=== PATIENT | female | born 1980 | race Hispanic/Latino ===

== ENCOUNTER 2020-06-27 10:40 | Inpatient (IN) | payer SELFPAY ==
--- NOTE | 2020-06-27 11:00 | Event Note ---
ED Screening Note ED Screening Note: hx of chronic venous PVD, lymphedema last night began having chills, right leg edema, and right leg erythema and increased warmth appears likely cellulitis, from below the knee to the ankle This initial assessment/diagnostic orders/clinical plan/treatment(s) is/are subject to change based on patients health status, clinical progression and re- assessment by fellow clinical providers in the ED. Further treatment and workup at subsequent clinical providers discretion. Patient/guardian urged not to elope from the ED as their condition may be serious if not clinically assessed and managed. Initial orders include: labs US
[2020-06-27 11:44] LABS: Hematocrit 39.4 % (30.3-42.9); Hemoglobin 13.1 gm/dl (10.1-14.3); Mean Corpuscular HGB Conc 33 % (30-34); Mean Corpuscular Volume 81 fl (79-97); Platelet Count 318 K/mm3 (140-440); Red Blood Count 4.84 M/mm3 (3.65-5.03); Red Cell Distribution Width 14.3 % (13.2-15.2)
[2020-06-27] MEDS ORDERED: LACTATED RINGERS 1000 ML IV SOLN IV ONE (11:52)
[2020-06-27] MEDS ORDERED: ONDANSETRON 4 MG/2 ML INJ IV ONE (11:53)
[2020-06-27] MEDS ORDERED: MORPHINE 4 MG/1 ML INJ IV ONE (11:53)
[2020-06-27] MEDS ORDERED: VANCOMYCIN 1,500 MG in SODIUM CHLORIDE 0.9% 500 ML 500 ML IV ONE (12:00)
[2020-06-27] MEDS ORDERED: VANCOMYCIN PHARMACY TO DOSE IV SCH (12:00)
[2020-06-27 12:02] LABS: Calcium 9.4 mg/dL (8.4-10.2)
--- NOTE | 2020-06-27 12:59 | Emergency Department Report ---
ED Lower Extremity HPI - General Chief Complaint: Extremity Problem,Nontraumatic Stated Complaint: RT LEG Time Seen by Provider: 06/27/20 10:58 Source: patient Mode of arrival: Wheelchair Limitations: No Limitations - History of Present Illness Initial Comments: This is a 39-year-old female nontoxic, well nourished in appearance, no acute signs of distress presents to the ED with c/o of swelling, redness and pain to right lower leg. Patient denies any pus or drainage. Patient denies any fever, chills, nausea, vomiting, chest pain, shortness of breath, headache or stiff neck. Patient denies any allergies. MD Complaint: leg injury -: days(s) Injury: Leg: Right Severity: mild Severity scale (0 -10): 8 Improves With: immobilization Worsens With: weight bearing, movement, palpation Associated Symptoms: swelling, able to partially bear weight. denies: snap/pop sensation, numbness, tingling, unable to bear weight - Related Data Previous Rx's Medication Instructions Recorded Last Taken Type Sulfamethoxazole/Trimethoprim 1 each PO BID #14 tablet 12/06/18 Unknown Rx [Bactrim DS TAB] Allergies Allergy/AdvReac Type Severity Reaction Status Date / Time No Known Allergies Allergy Verified 12/06/18 13:20 ED Review of Systems ROS: Stated complaint: RT LEG Other details as noted in HPI Comment: All other systems reviewed and negative Constitutional: denies: chills, fever Eyes: denies: eye pain, eye discharge, vision change ENT: denies: ear pain, throat pain Respiratory: denies: cough, shortness of breath, wheezing Cardiovascular: denies: chest pain, palpitations Endocrine: no symptoms reported Gastrointestinal: denies: abdominal pain, nausea, diarrhea Genitourinary: denies: urgency, dysuria, discharge Musculoskeletal: denies: back pain, joint swelling, arthralgia Skin: denies: rash, lesions Neurological: denies: headache, weakness, paresthesias Psychiatric: denies: anxiety, depression Hematological/Lymphatic: denies: easy bleeding, easy bruising ED Past Medical Hx - Past Medical History Previous Medical History?: Yes Additional medical history: LYMPHEDMEA/ CHRONIC VENOUS INSUFFIENCY - Surgical History Past Surgical History?: No - Social History Smoking Status: Current Every Day Smoker Substance Use Type: None - Medications Home Medications: Home Medications Medication Instructions Recorded Confirmed Last Taken Type Sulfamethoxazole/Trimethoprim 1 each PO BID #14 tablet 12/06/18 Unknown Rx [Bactrim DS TAB] ED Physical Exam - General Limitations: No Limitations General appearance: alert, in no apparent distress - Head Head exam: Present: atraumatic, normocephalic - Eye Eye exam: Present: normal appearance - Neck Neck exam: Present: normal inspection, full ROM. Absent: tenderness, meningismus, lymphadenopathy - Respiratory Respiratory exam: Absent: respiratory distress - Cardiovascular Cardiovascular Exam: Present: tachycardia - Extremities Exam Extremities exam: Present: full ROM, tenderness, normal capillary refill. Absent: joint swelling, calf tenderness - Expanded Lower Extremity Exam Right Hip exam: Present: normal inspection, full ROM. Absent: tenderness, swelling Upper Leg exam: Present: normal inspection, full ROM. Absent: tenderness, swelling Knee exam: Present: normal inspection, full ROM. Absent: tenderness, swelling Lower Leg exam: Present: full ROM, tenderness, swelling, erythema. Absent: abrasion, laceration, ecchymosis, deformity, crepidus, dislocation, palpable cord, Iqra's sign Ankle exam: Present: full ROM, tenderness, swelling, erythema. Absent: abrasion, laceration, ecchymosis, deformity, crepidus, dislocation, anterior draw sign Foot/Toe exam: Present: full ROM, tenderness, swelling, erythema. Absent: abrasion, laceration, ecchymosis, deformity, crepidus, dislocation, amputation, puncture wound, foreign body, calcaneal tenderness, tenderness at base of 5th metatarsal, nail avulsion, subungual hematoma Neuro vascular tendon exam: Present: no vascular compromise Gait: Positive: observed and limited by pain - Back Exam Back exam: Present: normal inspection, full ROM - Neurological Exam Neurological exam: Present: alert, oriented X3 - Psychiatric Psychiatric exam: Present: normal affect, normal mood - Skin Skin exam: Present: warm, dry, intact, normal color. Absent: rash ED Course Vital Signs 06/27/20 10:43 Temperature 98.9 F Pulse Rate 116 H Respiratory 18 Rate Blood Pressure 125/73 O2 Sat by Pulse 100 Oximetry - Reevaluation(s) Reevaluation #1: 06/27/20 12:57 Patient is speaking in full sentences with no signs of distress noted. - Consultations Consultation #1: 06/27/20 13:13 Patient has been consulted with Dr. Angeles about patient history, physical exam, and labs and agrees for admission. Consultation #2: 06/27/20 14:36 Patient has been consulted with Dr. Lopez about patient history, physical exam, and labs and accepts patient to services with CT to left leg to be ordered. Consultation #3: 06/27/20 16:05 Dr. Lopez notified of the CT results. ED Lower Extremity MDM - Lab Data Result diagrams: 06/27/20 11:10 06/27/20 11:10 Lab Results 06/27/20 06/27/20 06/27/20 Range/Units 11:10 11:10 11:10 WBC 25.6 H (4.5-11.0) K/mm3 RBC 4.84 (3.65-5.03) M/mm3 Hgb 13.1 (10.1-14.3) gm/dl Hct 39.4 (30.3-42.9) % MCV 81 (79-97) fl MCH 27 L (28-32) pg MCHC 33 (30-34) % RDW 14.3 (13.2-15.2) % Plt Count 318 (140-440) K/mm3 Seg Neutrophils % Bell Staff Sodium 130 L (137-145) mmol/L Potassium 4.3 (3.6-5.0) mmol/L Chloride 95.6 L (98-107) mmol/L Carbon Dioxide 21 L (22-30) mmol/L Anion Gap 18 mmol/L BUN 12 (7-17) mg/dL Creatinine 1.2 (0.6-1.2) mg/dL Estimated GFR 50 ml/min BUN/Creatinine Ratio 10 % Glucose 105 H (65-100) mg/dL Lactic Acid 4.00 H* (0.7-2.0) mmol/L Calcium 9.4 (8.4-10.2) mg/dL Total Bilirubin 0.70 (0.1-1.2) mg/dL AST 21 (5-40) units/L ALT 18 (7-56) units/L Alkaline Phosphatase 82 (35-129) units/L Total Protein 7.6 (6.3-8.2) g/dL Albumin 4.0 (3.9-5) g/dL Albumin/Globulin Ratio 1.1 % - Medical Decision Making This is a 39-year-old female that presents with cellulitis. Patient is stable and was examined by me. There is no induration, fluctuance. No signs of ab scess formation. At time of admission, the patient does not seem toxic or ill in appearance. No acute signs of distress noted. Patient agrees to admission treatment plan of care. No further questions noted by the patient. Critical care attestation.: If time is entered above; I have spent that time in minutes in the direct care of this critically ill patient, excluding procedure time. ED Disposition Clinical Impression: Cellulitis of right lower leg Lymphedema of lower extremity Qualifiers: Laterality: right Qualified Code(s): I89.0 - Lymphedema, not elsewhere classified Leukocytosis Qualifiers: Leukocytosis type: unspecified Qualified Code(s): D72.829 - Elevated white blood cell count, unspecified Disposition: OP ADMIT IP TO THIS HOSP Is pt being admited?: Yes Condition: Stable Referrals: PRIMARY CARE, [Primary Care Provider] - 3-5 Days
--- NOTE | 2020-06-27 15:57 | Cat Scan Report ---
CT lower extremity RT w con INDICATION / CLINICAL INFORMATION: Right leg pain and swelling. TECHNIQUE: Axial CT images of the right lower extremity performed without intravenous contrast. Coronal and sagi ttal reformations were obtained All CT scans at this location are performed using CT dose reduction f or ALARA by means of automated exposure control. COMPARISON: None available. FINDINGS: BONES: No acute fracture. No aggressive osseous structures and. JOINT(S): No significant arthritis. No significant effusion. No intra-articular bodies. MUSCLES / TENDONS: No significant abnormality. SOFT TISSUES: There is diffuse subcutaneous edema and skin thickening of the left foreleg, greatest d istally, extending into the ankle and hindfoot. No organized fluid collection. ADDITIONAL FINDINGS: None. IMPRESSION: 1. Diffuse soft tissue swelling with subcutaneous edema and skin thickening of the left foreleg and a nkle, may reflect cellulitis in the appropriate clinical setting. No evidence of abscess or osteomyel itis. Signer Name: Joseph Sweeney MD Signed: 06/27/2020 3:52 PM Workstation Name: [id number]
[2020-06-27 16:21] LABS: Band Neutrophils # (Manual) 6.1 K/mm3; Basophils % (Manual) 0 % (0.0-1.8); Eosinophils % (Manual) 0 % (0.0-4.3); Total Cells Counted 100
[2020-06-27 16:22] LABS: Burr Cells Rare; Ovalocytes Rare; Platelet Estimate Consistent w Auto
--- NOTE | 2020-06-27 16:48 | History and Physical Report ---
History of Present Illness Chief complaint: My right leg is hurting History of present illness: 39 YO Female with Obesity Hypoventilation Syndrome, Nicotine Dependence, Lymphedema, Venous Insufficiency presents to ED for evaluation. Patient states that she has experienced swelling, redness, tenderness, and pain to her right leg over the past 5 days with persistently worsening symptoms over the same timeframe. Patient transported to [facility] via private vehicle for further care and evaluation of the aforementioned symptoms. Patient seen and evaluated in the emergency department. All lab and imaging studies reviewed. Patient underwent CT scan of the right lower extremity and was found to have right lower extremity cellulitis complicated by sepsis. Patient admitted to medical floor and initiated on sepsis protocol. Patient initiated on IV antibiotic therapy in the emergency department. Patient denies fever, chills, chest pain, palpitations, productive cough, recent ill contacts, or known exposure to COVID-19. No prior admission for review. No medication listed at time of admission for reconciliation. Past History Past Medical History: other (See HPI) Past Surgical History: No surgical history, Other (Reviewed) Social history: single, smoking. denies: alcohol abuse, prescription drug abuse Family history: diabetes, hypertension Medications and Allergies Allergies Allergy/AdvReac Type Severity Reaction Status Date / Time No Known Allergies Allergy Verified 12/06/18 13:20 Home Medications Medication Instructions Recorded Confirmed Last Taken Type Sulfamethoxazole/Trimethoprim 1 each PO BID #14 tablet 12/06/18 Unknown Rx [Bactrim DS TAB] Review of Systems Constitutional: no weight loss, no weight gain, no fever, no chills Ears, nose, mouth and throat: no ear pain, no ear discharge, no tinnitis, no nose pain, no nasal congestion, no nasal discharge Breasts: no change in shape, no swelling, no mass Cardiovascular: no chest pain, no palpitations, no rapid/irregular heart beat, no syncope, no lightheadedness Respiratory: no cough, no excessive sputum, no hemoptysis, no shortness of breath, no dyspnea on exertion Gastrointestinal: no abdominal pain, no nausea, no vomiting, no diarrhea, no constipation, no change in bowel habits Genitourinary Female: no pelvic pain, no flank pain, no menorrhagia, no dysuria, no urinary frequency, no urgency Rectal: no pain, no incontinence, no bleeding Musculoskeletal: no neck stiffness, no neck pain, no shooting arm pain, no arm numbness/tingling, no leg numbness/tingling Integumentary: rash, redness, other (Right lower extremity) Neurological: no head injury, no transient paralysis, no parathesias, no numbness, no tingling, no syncope, no ataxia Psychiatric: no anxiety, no memory loss, no insomnia, no change in appetite, no change in libido, no disorientation, no hallucinations Endocrine: no excessive thirst, no polydipsia, no nocturia, no flushing Allergic/Immunologic: no urticaria, no allergic rhinitis, no wheezing, no persistent infections, no angioedema Exam - Constitutional Vitals: Temp Pulse Resp BP Pulse Ox 98.9 F 116 H 18 125/73 100 06/27/20 10:43 06/27/20 10:43 06/27/20 10:43 06/27/20 10:43 06/27/20 10:43 General appearance: Present: no acute distress, well-nourished - EENT Eyes: Present: PERRL ENT: hearing intact, clear oral mucosa - Neck Neck: Present: supple, normal ROM - Respiratory Respiratory effort: normal Respiratory: bilateral: CTA - Cardiovascular Heart Sounds: Present: S1 & S2. Absent: rub, click - Extremities Extremities: pulses symmetrical, No edema Peripheral Pulses: within normal limits - Abdominal General gastrointestinal: Present: soft, non-tender, non-distended, normal bowel sounds Female genitourinary: Present: normal - Integumentary Integumentary: Present: clear, warm, dry - Musculoskeletal Musculoskeletal: gait normal, strength equal bilaterally - Psychiatric Psychiatric: appropriate mood/affect, intact judgment & insight - Neurologic Neurologic: CNII-XII intact, moves all extremities Results - Labs CBC & Chem 7: 06/27/20 11:10 06/27/20 11:10 Labs: Abnormal lab results 06/27/20 06/27/20 06/27/20 Range/Units 11:10 11:10 11:10 WBC 25.6 H (4.5-11.0) K/mm3 MCH 27 L (28-32) pg Seg Neuts % (Manual) 73.0 H (40.0-70.0) % Lymphocytes % (Manual) 1.0 L (13.4-35.0) % Seg Neutrophils # Man 18.7 H (1.8-7.7) K/mm3 Lymphocytes # (Manual) 0.3 L (1.2-5.4) K/mm3 Sodium 130 L (137-145) mmol/L Chloride 95.6 L (98-107) mmol/L Carbon Dioxide 21 L (22-30) mmol/L Glucose 105 H (65-100) mg/dL Lactic Acid 4.00 H* (0.7-2.0) mmol/L //20 Range/Units 12:07 WBC (4.5-11.0) K/mm3 MCH (28-32) pg Seg Neuts % (Manual) (40.0-70.0) % Lymphocytes % (Manual) (13.4-35.0) % Seg Neutrophils # Man (1.8-7.7) K/mm3 Lymphocytes # (Manual) (1.2-5.4) K/mm3 Sodium (137-145) mmol/L Chloride (98-107) mmol/L Carbon Dioxide (22-30) mmol/L Glucose (65-100) mg/dL Lactic Acid 2.40 H* (0.7-2.0) mmol/L Assessment and Plan - Patient Problems (1) Sepsis Current Visit: Yes Status: Acute Plan to address problem: Sepsis protocol: CBC, CMP, chest x-ray, urinalysis, CT scan right lower extremity, IV antibiotic therapy, serial lactic acid level, monitor fluid balance, IV fluid resuscitation therapy, blood cultures. (2) Cellulitis of right lower leg Current Visit: Yes Status: Acute (3) Lymphedema of lower extremity Current Visit: Yes Status: Acute Qualifiers: Laterality: right Qualified Code(s): I89.0 - Lymphedema, not elsewhere classified Plan to address problem: Chronic, supportive care, pain control. (4) Venous stasis dermatitis of both lower extremities Current Visit: No Status: Acute Plan to address problem: Supportive care, elevation of extremities while in bed, outpatient vascular surgery follow-up. (5) DVT prophylaxis Current Visit: Yes Status: Acute Plan to address problem: SCD to bilateral lower extremities while in bed, prophylactic anticoagulation
[2020-06-27] MEDS ORDERED: ONDANSETRON 4 MG/2 ML INJ IV PRN (16:49)
[2020-06-27] MEDS ORDERED: oxyCODONE /ACETAMINOPHEN 5-325MG TAB PO PRN (16:49)
[2020-06-27] MEDS ORDERED: ACETAMINOPHEN 325 MG TAB PO PRN ×2 (16:49→19:45)
[2020-06-27] MEDS ORDERED: ALBUTEROL 2.5 MG/3 ML NEBU IH PRN (16:49)
[2020-06-27] MEDS ORDERED: VANCOMYCIN/NS 1 GM/250 ML 1 GM/250 ML BAG IV ONE (16:51)
[2020-06-27] MEDS ORDERED: HYDROmorphone 1 MG/1 ML INJ IV PRN (19:45)
[2020-06-27] MEDS: MORPHINE 4 MG/1 ML INJ IV PRN (20:01)
--- NOTE | 2020-06-27 20:51 | Vascular Lab Report ---
DUPLEX DOPPLER LOWER EXTREMITY VEINS, RIGHT INDICATION / CLINICAL INFORMATION: right LE edema and erythema. TECHNIQUE: Duplex doppler imaging was performed through the veins of the right lower extremity using venous comp ression and other maneuvers. COMPARISON: None available. FINDINGS: RIGHT COMMON FEMORAL VEIN: Negative. RIGHT FEMORAL VEIN: Negative. RIGHT POPLITEAL VEIN: Negative. RIGHT CALF VEINS: Negative. ADDITIONAL FINDINGS: None. IMPRESSION: 1. No sonographic evidence for DVT in the right lower extremity. Signer Name: Andrea Blanco MD Signed: 06/27/2020 8:47 PM Workstation Name: [id number]
[2020-06-28] MEDS ORDERED: VANCOMYCIN/NS 1 GM/250 ML 1 GM/250 ML BAG IV SCH
[2020-06-28 04:53] LABS: Basophils # (Auto) 0.1 K/mm3 (0.0-0.1); Basophils % (Auto) 0.3 % (0.0-1.8); Hematocrit 33.7 % (30.3-42.9); Hemoglobin 11.5 gm/dl (10.1-14.3); Lymphocytes # (Auto) 1.4 K/mm3 (1.2-5.4); Lymphocytes % (Auto) 7.6 % (13.4-35.0); Mean Corpuscular HGB Conc 34 % (30-34); Mean Corpuscular Volume 81 fl (79-97); Monocytes # (Auto) 0.8 K/mm3 (0.0-0.8); Monocytes % (Auto) 4.4 % (0.0-7.3); Platelet Count 256 K/mm3 (140-440); Red Blood Count 4.17 M/mm3 (3.65-5.03); Red Cell Distribution Width 14.3 % (13.2-15.2)
[2020-06-28 05:11] LABS: Calcium 8.7 mg/dL (8.4-10.2)
[2020-06-28] MEDS ORDERED: ENOXAPARIN 30 MG/0.3 ML INJ SUB-Q SCH (10:00)
[2020-06-28] MEDS ORDERED: ENOXAPARIN 40 MG/0.4 ML INJ SUB-Q SCH (10:00)
[2020-06-28] MEDS: MORPHINE 4 MG/1 ML INJ IV PRN (11:09)
[2020-06-28] MEDS ORDERED: VANCOMYCIN 1,500 MG in SODIUM CHLORIDE 0.9% 500 ML 500 ML IV SCH (18:00)
--- NOTE | 2020-06-28 20:28 | Progress Note ---
Assessment and Plan - Patient Problems (1) Sepsis Current Visit: Yes Status: Acute Plan to address problem: Sepsis protocol: CBC, CMP, chest x-ray, urinalysis, CT scan right lower extremity, IV antibiotic therapy, serial lactic acid level, monitor fluid balance, IV fluid resuscitation therapy, blood cultures. (2) Cellulitis of right lower leg Current Visit: Yes Status: Acute Plan to address problem: CBC, CMP, CT scan right lower extremity, IV antibiotic therapy. (3) Lymphedema of lower extremity Current Visit: Yes Status: Acute Qualifiers: Laterality: right Qualified Code(s): I89.0 - Lymphedema, not elsewhere classified Plan to address problem: Chronic, supportive care, pain control. (4) Venous stasis dermatitis of both lower extremities Current Visit: No Status: Inactive Plan to address problem: Supportive care, elevation of extremities while in bed, outpatient vascular surgery follow-up. (5) DVT prophylaxis Current Visit: Yes Status: Acute Plan to address problem: SCD to bilateral lower extremities while in bed, prophylactic anticoagulation History Interval history: 39-year-old female hospital day 2 with right lower extremity cellulitis complicated by sepsis, chronic lymphedema, chronic venous stasis. Patient states that pain is improved but is still present. No reported nursing events. Hospitalist Physical - Constitutional Vitals: Temp Pulse Resp BP Pulse Ox 102.6 F H 121 H 20 89/47 97 06/28/20 11:22 06/28/20 11:22 06/28/20 11:22 06/28/20 11:22 06/28/20 11:22 General appearance: Present: no acute distress, well-nourished - EENT Eyes: Present: PERRL ENT: hearing intact - Neck Neck: Present: supple - Respiratory Respiratory: bilateral: CTA - Cardiovascular Rhythm: regular Heart Sounds: Present: S1 & S2 - Extremities Extremities: no ischemia Extremity abnormal: edema, erythema, other (Right lower extremity) Peripheral Pulses: within normal limits - Abdominal General gastrointestinal: soft, non-tender, non-distended - Integumentary Integumentary: Present: clear, dry - Psychiatric Psychiatric: appropriate mood/affect, cooperative - Neurologic Neurologic: CNII-XII intact Results - Labs CBC & Chem 7: 06/28/20 04:34 06/28/20 04:34 Labs: Laboratory Last Values WBC 19.1 K/mm3 (4.5-11.0) H 06/28/20 04:34 RBC 4.17 M/mm3 (3.65-5.03) 06/28/20 04:34 Hgb 11.5 gm/dl (10.1-14.3) 06/28/20 04:34 Hct 33.7 % (30.3-42.9) 06/28/20 04:34 MCV 81 fl (79-97) 06/28/20 04:34 MCH 28 pg (28-32) 06/28/20 04:34 MCHC 34 % (30-34) 06/28/20 04:34 RDW 14.3 % (13.2-15.2) 06/28/20 04:34 Plt Count 256 K/mm3 (140-440) 06/28/20 04:34 Lymph % (Auto) 7.6 % (13.4-35.0) L 06/28/20 04:34 [place] % (Auto) 4.4 % (0.0-7.3) 06/28/20 04:34 Eos % (Auto) 0.0 % (0.0-4.3) 06/28/20 04:34 Baso % (Auto) 0.3 % (0.0-1.8) 06/28/20 04:34 Lymph # (Auto) 1.4 K/mm3 (1.2-5.4) 06/28/20 04:34 [place] # (Auto) 0.8 K/mm3 (0.0-0.8) 06/28/20 04:34 Eos # (Auto) 0.0 K/mm3 (0.0-0.4) 06/28/20 04:34 Baso # (Auto) 0.1 K/mm3 (0.0-0.1) 06/28/20 04:34 Add Manual Diff Complete 06/27/20 11:10 Total Counted 100 06/27/20 11:10 Seg Neutrophils % 87.7 % (40.0-70.0) H 06/28/20 04:34 Seg Neuts % (Manual) 73.0 % (40.0-70.0) H 06/27/20 11:10 Band Neutrophils % 24.0 % 06/27/20 11:10 Lymphocytes % (Manual) 1.0 % (13.4-35.0) L 06/27/20 11:10 Reactive Lymphs % (Man) 0 % 06/27/20 11:10 Monocytes % (Manual) 2.0 % (0.0-7.3) 06/27/20 11:10 Eosinophils % (Manual) 0 % (0.0-4.3) 06/27/20 11:10 Basophils % (Manual) 0 % (0.0-1.8) 06/27/20 11:10 Metamyelocytes % 0 % 06/27/20 11:10 Myelocytes % 0 % 06/27/20 11:10 Promyelocytes % 0 % 06/27/20 11:10 Blast Cells % 0 % 06/27/20 11:10 Nucleated RBC % Not Reportable 06/27/20 11:10 Seg Neutrophils # 16.7 K/mm3 (1.8-7.7) H 06/28/20 04:34 Seg Neutrophils # Man 18.7 K/mm3 (1.8-7.7) H 06/27/20 11:10 Band Neutrophils # 6.1 K/mm3 06/27/20 11:10 Lymphocytes # (Manual) 0.3 K/mm3 (1.2-5.4) L 06/27/20 11:10 Abs React Lymphs (Man) 0.0 K/mm3 06/27/20 11:10 Monocytes # (Manual) 0.5 K/mm3 (0.0-0.8) 06/27/20 11:10 Eosinophils # (Manual) 0.0 K/mm3 (0.0-0.4) 06/27/20 11:10 Basophils # (Manual) 0.0 K/mm3 (0.0-0.1) 06/27/20 11:10 Metamyelocytes # 0.0 K/mm3 06/27/20 11:10 Myelocytes # 0.0 K/mm3 06/27/20 11:10 Promyelocytes # 0.0 K/mm3 06/27/20 11:10 Blast Cells # 0.0 K/mm3 06/27/20 11:10 WBC Morphology Not Reportable 06/27/20 11:10 Hypersegmented Neuts Not Reportable 06/27/20 11:10 Hyposegmented Neuts Not Reportable 06/27/20 11:10 Hypogranular Neuts Not Reportable 06/27/20 11:10 Smudge Cells Not Reportable 06/27/20 11:10 Toxic Granulation Not Reportable 06/27/20 11:10 Toxic Vacuolation Not Reportable 06/27/20 11:10 Dohle Bodies Not Reportable 06/27/20 11:10 Pelger-Huet Anomaly Not Reportable 06/27/20 11:10 Blas Rods Not Reportable 06/27/20 11:10 Platelet Estimate Consistent w auto 06/27/20 11:10 Clumped Platelets Not Reportable 06/27/20 11:10 Plt Clumps, EDTA Not Reportable 06/27/20 11:10 Large Platelets Not Reportable 06/27/20 11:10 Giant Platelets Not Reportable 06/27/20 11:10 Platelet Satelliting Not Reportable 06/27/20 11:10 Plt Morphology Comment Not Reportable 06/27/20 11:10 RBC Morphology Not Reportable 06/27/20 11:10 Dimorphic RBCs Not Reportable 06/27/20 11:10 Polychromasia Not Reportable 06/27/20 11:10 Hypochromasia Not Reportable 06/27/20 11:10 Poikilocytosis Not Reportable 06/27/20 11:10 Anisocytosis Not Reportable 06/27/20 11:10 Microcytosis Not Reportable 06/27/20 11:10 Macrocytosis Not Reportable 06/27/20 11:10 Spherocytes Not Reportable 06/27/20 11:10 Pappenheimer Bodies Not Reportable 06/27/20 11:10 Sickle Cells Not Reportable 06/27/20 11:10 Target Cells Not Reportable 06/27/20 11:10 Tear Drop Cells Not Reportable 06/27/20 11:10 Ovalocytes Rare 06/27/20 11:10 Helmet Cells Not Reportable 06/27/20 11:10 Garcia-Paauilo Bodies Not Reportable 06/27/20 11:10 [place] Rings Not Reportable 06/27/20 11:10 [place] Cells Rare 06/27/20 11:10 Bite Cells Not Reportable 06/27/20 11:10 Crenated Cell Not Reportable 06/27/20 11:10 Elliptocytes Not Reportable 06/27/20 11:10 Acanthocytes (Spur) Not Reportable 06/27/20 11:10 Rouleaux Not Reportable 06/27/20 11:10 Hemoglobin C Crystals Not Reportable 06/27/20 11:10 Schistocytes Not Reportable 06/27/20 11:10 Malaria parasites Not Reportable 06/27/20 11:10 Mumtaz Bodies Not Reportable 06/27/20 11:10 Hem Pathologist Commnt No 06/27/20 11:10 Sodium 132 mmol/L (137-145) L 06/28/20 04:34 Potassium 4.0 mmol/L (3.6-5.0) 06/28/20 04:34 Chloride 99.9 mmol/L (98-107) 06/28/20 04:34 Carbon Dioxide 22 mmol/L (22-30) 06/28/20 04:34 Anion Gap 14 mmol/L 06/28/20 04:34 BUN 11 mg/dL (7-17) 06/28/20 04:34 Creatinine 1.2 mg/dL (0.6-1.2) 06/28/20 04:34 Estimated GFR 50 ml/min 06/28/20 04:34 BUN/Creatinine Ratio 9 % 06/28/20 04:34 Glucose 95 mg/dL (65-100) 06/28/20 04:34 Lactic Acid 1.10 mmol/L (0.7-2.0) 06/28/20 04:34 Calcium 8.7 mg/dL (8.4-10.2) 06/28/20 04:34 Total Bilirubin 0.70 mg/dL (0.1-1.2) 06/27/20 11:10 AST 21 units/L (5-40) 06/27/20 11:10 ALT 18 units/L (7-56) 06/27/20 11:10 Alkaline Phosphatase 82 units/L (35-129) 06/27/20 11:10 Total Protein 7.6 g/dL (6.3-8.2) 06/27/20 11:10 Albumin 4.0 g/dL (3.9-5) 06/27/20 11:10 Albumin/Globulin Ratio 1.1 % 06/27/20 11:10 Microbiology: Microbiology 06/27/20 11:10 Peripheral/Venous Blood Culture - Preliminary NO GROWTH AFTER 24 HOURS 06/27/20 11:10 Peripheral/Venous Blood Culture - Preliminary NO GROWTH AFTER 24 HOURS Murphy/IV: IV Catheter Type [Left] Peripheral IV Active Medications - Current Medications Current Medications: Generic Name Dose Route Start Last Admin Trade Name Freq PRN Reason Stop Dose Admin Acetaminophen 650 mg 06/27/20 16:49 06/28/20 12:08 Tylenol PO 650 mg Q4H PRN Administration Pain MILD(1-3)/Fever >100.5/MICHAUD Acetaminophen 650 mg 06/27/20 19:45 Tylenol PO Q6H PRN Pain, Mild (1-3) Albuterol 2.5 mg 06/27/20 16:49 Proventil IH Q4HRT PRN Shortness Of Breath Enoxaparin Sodium 40 mg 06/28/20 10:00 06/28/20 11:00 Enoxaparin SUB-Q 40 mg QDAY TL Administration Protocol Hydromorphone HCl 0.25 mg 06/27/20 19:45 Dilaudid IV Q4H PRN Pain, Moderate (4-6) Vancomycin HCl 1,500 mg/ 530 mls @ 333.333 mls/hr 06/28/20 18:00 06/28/20 17:00 Sodium Chloride IV 333.333 mls/hr Q24H TL Administration Morphine Sulfate 2 mg 06/27/20 16:49 06/28/20 11:09 Morphine IV 2 mg Q6H PRN Administration Pain , Severe (7-10) Ondansetron HCl 4 mg 06/27/20 16:49 Zofran IV Q8H PRN Nausea And Vomiting Oxycodone/Acetaminophen 1 tab 06/27/20 16:49 06/28/20 17:04 Percocet 5/325 PO 1 tab Q6H PRN Administration Pain, Moderate (4-6) Sodium Chloride 10 ml 06/27/20 22:00 06/28/20 11:00 Sodium Chloride Flush Syringe 10 Ml IV 10 ml BID TL Administration Sodium Chloride 10 ml 06/27/20 16:49 Sodium Chloride Flush Syringe 10 Ml IV PRN PRN LINE FLUSH
[2020-06-28 23:01] VITALS: BP 105/57
== END 2020-06-29 03:40 | disposition left against medical advice (07) | DRG 872 ==
LOC: ED 10:40 → 3A 17:23 → OBSVTOIN 06-28 14:07
PROVIDERS: ADMIT Internal Medicine; ATTEND Internal Medicine
DX: A41.9 Sepsis, unspecified organism (principal); L03.115 Cellulitis of right lower limb; E66.2 Morbid (severe) obesity with alveolar hypoventilation; F17.200 Nicotine dependence, unspecified, uncomplicated; I89.0 Lymphedema, not elsewhere classified; D72.829 Elevated white blood cell count, unspecified; I87.2 Venous insufficiency (chronic) (peripheral); Z82.49 Family history of ischemic heart disease and other diseases of the circulatory system; Z83.3 Family history of diabetes mellitus
CPT/HCPCS: 36415; 80048; 80053; 82140; 85007; 85025; 87040; 94640; 96365; 96367; 96372; 96375; G0378; J1650; J2270; J2405; J3370; J7040; J7120; Q9967